=== PATIENT | female | born 1970 | race African-American/Black ===

== ENCOUNTER → 2016-10-05 | Outpatient (CLI) | payer OTHER ==
[~2016-10-05] MED LIST: AZITHROMYCIN 2250 MG PO; FUROSEMIDE 40 M40 M1 PO; LEVOTHROID112 MCG PO; LISINOPRIL10 MG PO; PROAIR HFA8.5 GM IH
== END ==
LOC: RAD 08:54
DX: M54.16 Radiculopathy, lumbar region (principal); I51.7 Cardiomegaly; R05 Cough

== ENCOUNTER → 2019-04-03 | Outpatient (CLI) | payer OTHER ==
[~2019-04-03] MED LIST changes: +BYSTOLIC 5 MG5 MG PO; +FENOFIBRATE160 MG PO; +FLONASE 0.05%50 MCG NARES; +HYDROCHLOROTHIA25 M1 PO; +IRON325 M1 PO; +LEVOXYL125 MCG PO; +METFORMIN HCL500 MG PO; +OMEPRAZOLE40 MG PO; +PROAIR HFA8.5 GM INH; +ZANTAC 150MG T150 M1 PO
== END ==
LOC: BC 11:12
DX: Z12.31 Encounter for screening mammogram for malignant neoplasm of breast (principal)

== ENCOUNTER → 2019-04-17 | Outpatient (CLI) | payer OTHER ==
[~2019-04-17] VITALS: Ht 170.2 cm; Wt 149.7 kg
--- NOTE | 2019-04-18 17:06 | PATH ---
[facility] [place] [address] PATHOLOGY RPT PROCEDURE Name: JANET JUAREZ Room #: REG JULIANA Joshi#: [id number] Admission: 04/17/19 Date of : 74 Discharge: Report #: [id number] Path Case #: [id number] [facility] Accession Number: [id number] . 01 Material submitted: . PART A: stomach - RANDOM GASTRIC BX PART B: sigmoid colon - POLYP AT SIGMOID COLON . 01 Clinical history: . Pre-OP DX: Anemia Post-OP DX: Colon polyps, gastritis, esophagitis . 02 Diagnosis: A. Gastric mucosa, random gastric, rule out H. pylori, endoscopic biopsy: - Moderate reactive gastropathy. - Negative for intestinal metaplasia or atrophy. - Negative for Helicobacter pylori (properly controlled immunohistochemical stain performed). . B. Polyp, at sigmoid, endoscopic biopsy: - Hyperplastic polyp. - Negative for dysplasia. (IUV:pit; 04/18/2019) QTP 04/18/2019 1158 Local . 02 Electronically signed: . Inessa Schultz MD, Pathologist NPI- [id number] . 01 Gross description: . A. Received in formalin labeled "Janet Juarez, random gastric biopsies," and additionally labeled on the requisition as "to rule out H. pylori," are 5 segments of julio soft tissue measuring 1.5 x 0.9 x 0.2 cm in aggregate dimensions and ranging from 0.3 to 0.7 cm in maximum dimension. The specimen is submitted entirely in cassette A1. . B. Received in formalin labeled "Janet Juarez, polyp at sigmoid colon," are 4 segments of julio soft tissue measuring 1.0 x 1.0 x 0.3 cm in aggregate dimensions and ranging from 0.3 to 0.4 cm in maximum dimension. The specimen is submitted entirely in cassette B1. (TSD; 04/17/2019) TOB/TOB 04/17/2019 2210 Local . 02 Pathologist provided ICD-10: K31.9, K63.5 . 02 [place] [address] PATHOLOGY RPT PROCEDURE Name: EYAD JUAREZYAKELIN MARISCAL Room #: REG JULIANA Joshi#: [id number] Admission: 04/17/19 Date of : 74 Discharge: Report #: [id number] Path Case #: [id number] Specimen Comment: A courtesy copy of this report has been sent to [phone] Specimen Comment: [phone] Specimen Comment: Report sent to / DR MENDOZA Performed at: [address], [place] [id number] MD Frank Brush MD Phone: [phone] Performed at: [address] [id number] MD Inessa Schultz MD Phone: [phone]
== END | disposition home or self-care (01) ==
LOC: GI
DX: D50.9 Iron deficiency anemia, unspecified (principal); K63.5 Polyp of colon; K31.9 Disease of stomach and duodenum, unspecified; K21.0 Gastro-esophageal reflux disease with esophagitis; I10 Essential (primary) hypertension; E11.9 Type 2 diabetes mellitus without complications; Z90.49 Acquired absence of other specified parts of digestive tract; Z98.890 Other specified postprocedural states; Z79.899 Other long term (current) drug therapy; Z98.51 Tubal ligation status
CPT/HCPCS: 62110; 62900

== ENCOUNTER → 2019-11-23 | Outpatient (CLI) | payer OTHER | LOC: RAD 14:32 | PROVIDERS: ATTEND Neuromusculoskeletal Medicine & OMM | DX: M25.561 Pain in right knee (principal) ==

== ENCOUNTER → 2020-04-15 | Outpatient (CLI) | payer OTHER | LOC: BC 14:02 | PROVIDERS: ATTEND Neuromusculoskeletal Medicine & OMM | DX: Z12.31 Encounter for screening mammogram for malignant neoplasm of breast (principal) ==

== ENCOUNTER → 2021-05-19 | Outpatient (CLI) | payer OTHER | LOC: ULTRA 13:16 | PROVIDERS: ATTEND Nurse Practitioner | DX: M25.561 Pain in right knee (principal); M79.89 Other specified soft tissue disorders ==